=== PATIENT | female | born 1990 | race American Indian/Alaskan Native ===

== ENCOUNTER 2018-09-06 09:51 | Emergency (ER) | payer OTHER ==
[2018-09-06 09:58] VITALS: BP 132/81
[2018-09-06] MEDS ORDERED: TORADOL IM ONE (11:37)
--- NOTE | 2018-09-06 11:40 | Emergency Department Report ---
ED Back Pain/Injury HPI - General Chief Complaint: Extremity Injury, Lower Stated Complaint: LOWER BACK PAIN/ (R) LEG/FOOT PAIN Time Seen by Provider: 09/06/18 11:32 Source: patient Limitations: No Limitations - History of Present Illness MD Complaint: back pain -: week(s) (2) Quality: sharp Improves With: immobilization Worsens With: movement Associated Symptoms: denies other symptoms - Related Data Previous Rx's Medication Instructions Recorded Last Taken Type HYDROcodone/APAP 10-325 [[place] 1 each PO Q6HR PRN #20 tablet 11/09/13 Unknown Rx 10-325 mg TAB] Ibuprofen [Motrin 800 MG tab] 800 mg PO Q8H #30 tablet 11/09/13 Unknown Rx methOCARBAMOL [Robaxin TAB] 500 mg PO BID #20 tab 04/15/15 Unknown Rx traMADol [Ultram 50 MG tab] 50 mg PO TID PRN #15 tablet 04/15/15 Unknown Rx Allergies Allergy/AdvReac Type Severity Reaction Status Date / Time No Known Allergies Allergy Verified 09/06/18 09:53 ED Review of Systems ROS: Stated complaint: LOWER BACK PAIN/ (R) LEG/FOOT PAIN Other details as noted in HPI Comment: All other systems reviewed and negative Constitutional: denies: chills, fever Respiratory: denies: cough Cardiovascular: denies: chest pain, palpitations Gastrointestinal: denies: abdominal pain, nausea Genitourinary: denies: urgency, dysuria, frequency, hematuria, discharge Neurological: denies: headache, weakness, numbness, paresthesias, confusion ED Past Medical Hx - Past Medical History Previous Medical History?: No - Surgical History Past Surgical History?: No - Social History Smoking Status: Never Smoker Substance Use Type: None - Medications Home Medications: Home Medications Medication Instructions Recorded Confirmed Last Taken Type HYDROcodone/APAP 10-325 [[place] 1 each PO Q6HR PRN #20 tablet 11/09/13 Unknown Rx 10-325 mg TAB] Ibuprofen [Motrin 800 MG tab] 800 mg PO Q8H #30 tablet 11/09/13 Unknown Rx methOCARBAMOL [Robaxin TAB] 500 mg PO BID #20 tab 04/15/15 Unknown Rx traMADol [Ultram 50 MG tab] 50 mg PO TID PRN #15 tablet 04/15/15 Unknown Rx ED Physical Exam - General Limitations: No Limitations General appearance: alert, in no apparent distress - Head Head exam: Present: atraumatic, normocephalic, normal inspection - Eye Eye exam: Present: normal appearance, PERRL - ENT ENT exam: Present: normal exam, normal orophraynx, mucous membranes moist - Neck Neck exam: Present: normal inspection, full ROM. Absent: tenderness, meningismus, lymphadenopathy, thyromegaly - Respiratory Respiratory exam: Present: normal lung sounds bilaterally. Absent: respiratory distress, wheezes, rales, rhonchi, stridor, chest wall tenderness, accessory muscle use, decreased breath sounds, prolonged expiratory - Cardiovascular Cardiovascular Exam: Present: regular rate, normal rhythm, normal heart sounds - GI/Abdominal GI/Abdominal exam: Present: soft, normal bowel sounds. Absent: distended, tenderness, guarding, rebound, rigid, organomegaly, mass, bruit, pulsatile mass, hernia - Extremities Exam Extremities exam: Present: normal inspection, full ROM, normal capillary refill. Absent: pedal edema, calf tenderness - Back Exam Back exam: Present: normal inspection, full ROM, muscle spasm. Absent: tenderness, CVA tenderness (R), CVA tenderness (L), paraspinal tenderness, vertebral tenderness - Neurological Exam Neurological exam: Present: alert, oriented X3, CN II-XII intact, normal gait, reflexes normal - Skin Skin exam: Present: warm, intact, normal color ED Course Vital Signs 09/06/18 09:53 Temperature 98.7 F Pulse Rate 80 Respiratory 18 Rate Blood Pressure 132/81 [Right] O2 Sat by Pulse 100 Oximetry Critical care attestation.: If time is entered above; I have spent that time in minutes in the direct care of this critically ill patient, excluding procedure time. ED Disposition Clinical Impression: Acute low back pain Disposition: DC-01 TO HOME OR SELFCARE Is pt being admited?: No Condition: Stable Instructions: Lumbar Radiculopathy (ED), Sciatica (ED), Back Pain (ED) Referrals: PETE CORRALES MD [Primary Care Provider] - 3-5 Days
== END 2018-09-06 11:57 | disposition home or self-care (01) ==
LOC: ED 09:51
DX: M54.5 Low back pain (principal)
CPT/HCPCS: 96372; 99282; J1885

== ENCOUNTER 2020-12-23 23:15 | Emergency (ER) | payer MEDICAID, OTHER ==
[2020-12-24] MEDS ORDERED: ACETAMINOPHEN 500 MG TAB PO ONE (00:49)
[2020-12-24] MEDS ORDERED: IBUPROFEN 600 MG TAB PO ONE (00:49)
[2020-12-24 01:17] VITALS: BP 122/67
--- NOTE | 2020-12-24 01:19 | Emergency Department Report ---
ED Lower Extremity HPI - General Stated Complaint: LT KNEE/LEG PAIN Source: patient Mode of arrival: Ambulatory - History of Present Illness Initial Comments: Patient is a 30-year-old -[place] female with no past medical history presents to the ED with complaint of acute onset persistent severe left knee pain after she hyperflexed the knee and felt "pop sound" about 8 hours ago. Patient states the pain is worse with ambulation or any active range of motion of the left knee. Patient denies fall, traumatic injury, numbness and tingling or weakness of left leg, dizziness, syncope, hip pain, back pain, chest pain or shortness of breath, nausea and vomiting or heavy lifting. MD Complaint: knee injury (Left knee pain) -: Sudden, hour(s) (8) Injury: Knee: Left (Left knee pain) Type of Injury: inversion Place: home Severity: severe Severity scale (0 -10): 8 Improves With: nothing Worsens With: weight bearing, movement, palpation Context: other (Flexion of left knee) Associated Symptoms: snap/pop sensation, able to partially bear weight. denies: swelling, numbness, tingling, unable to bear weight Treatments Prior to Arrival: NSAIDS - Related Data Previous Rx's Medication Instructions Recorded Last Taken Type HYDROcodone/APAP 10-325 [[place] 1 each PO Q6HR PRN #20 tablet 11/09/13 Unknown Rx 10-325 mg TAB] Ibuprofen [Motrin 800 MG tab] 800 mg PO Q8H #30 tablet 11/09/13 Unknown Rx methOCARBAMOL [Robaxin TAB] 500 mg PO BID #20 tab 04/15/15 Unknown Rx traMADoL [Ultram 50 MG tab] 50 mg PO TID PRN #15 tablet 04/15/15 Unknown Rx Ondansetron [Zofran Odt] 4 mg PO Q8HR PRN #14 tab.rapdis 09/06/18 Unknown Rx Prednisone [predniSONE 10 mg 10 mg PO .TAPER #1 tab.ds.pk 09/06/18 Unknown Rx (6-Day Pack, 21 Tabs)] Baclofen 20 mg PO Q12H PRN #24 tablet 12/24/20 Unknown Rx Ibuprofen [Motrin] 800 mg PO Q8HR PRN #30 tablet 12/24/20 Unknown Rx traMADoL [Ultram 50 MG tab] 50 mg PO Q4HR PRN #14 tablet 12/24/20 Unknown Rx Allergies Allergy/AdvReac Type Severity Reaction Status Date / Time No Known Allergies Allergy Verified 09/06/18 09:53 ED Review of Systems ROS: Stated complaint: LT KNEE/LEG PAIN Other details as noted in HPI Constitutional: denies: chills, fever Eyes: denies: eye pain, eye discharge, vision change ENT: denies: ear pain, throat pain Respiratory: denies: cough, shortness of breath, wheezing Cardiovascular: denies: chest pain, palpitations Endocrine: no symptoms reported Gastrointestinal: denies: abdominal pain, nausea, diarrhea Genitourinary: denies: urgency, dysuria, discharge Musculoskeletal: arthralgia (Left knee pain). denies: back pain, joint swelling Skin: denies: rash, lesions Neurological: denies: headache, weakness, paresthesias Psychiatric: denies: anxiety, depression Hematological/Lymphatic: denies: easy bleeding, easy bruising ED Past Medical Hx - Social History Smoking Status: Never Smoker Substance Use Type: None - Medications Home Medications: Home Medications Medication Instructions Recorded Confirmed Last Taken Type HYDROcodone/APAP 10-325 [[place] 1 each PO Q6HR PRN #20 tablet 11/09/13 Unknown Rx 10-325 mg TAB] Ibuprofen [Motrin 800 MG tab] 800 mg PO Q8H #30 tablet 11/09/13 Unknown Rx methOCARBAMOL [Robaxin TAB] 500 mg PO BID #20 tab 04/15/15 Unknown Rx traMADoL [Ultram 50 MG tab] 50 mg PO TID PRN #15 tablet 04/15/15 Unknown Rx Ondansetron [Zofran Odt] 4 mg PO Q8HR PRN #14 tab.rapdis 09/06/18 Unknown Rx Prednisone [predniSONE 10 mg 10 mg PO .TAPER #1 tab.ds.pk 09/06/18 Unknown Rx (6-Day Pack, 21 Tabs)] Baclofen 20 mg PO Q12H PRN #24 tablet 12/24/20 Unknown Rx Ibuprofen [Motrin] 800 mg PO Q8HR PRN #30 tablet 12/24/20 Unknown Rx traMADoL [Ultram 50 MG tab] 50 mg PO Q4HR PRN #14 tablet 12/24/20 Unknown Rx ED Physical Exam - General General appearance: alert, in no apparent distress - Head Head exam: Present: atraumatic, normocephalic, normal inspection - Eye Eye exam: Present: normal appearance, PERRL, EOMI Pupils: Present: normal accommodation - ENT ENT exam: Present: normal exam, normal orophraynx, mucous membranes moist, TM's normal bilaterally, normal external ear exam - Neck Neck exam: Present: normal inspection, full ROM - Respiratory Respiratory exam: Present: normal lung sounds bilaterally. Absent: respiratory distress, wheezes, rales, stridor, chest wall tenderness, accessory muscle use, decreased breath sounds, prolonged expiratory - Cardiovascular Cardiovascular Exam: Present: regular rate, normal rhythm, normal heart sounds. Absent: systolic murmur, diastolic murmur, rubs, gallop - GI/Abdominal GI/Abdominal exam: Present: soft, normal bowel sounds. Absent: tenderness, guarding, rebound, hyperactive bowel sounds, hypoactive bowel sounds, organomegaly - Extremities Exam Extremities exam: Present: normal inspection, tenderness (Palpable severe left knee tenderness with limited range of motion due to pain), normal capillary refill. Absent: full ROM (Limited range of motion of left knee due to pain), pedal edema, joint swelling, calf tenderness - Back Exam Back exam: Present: normal inspection, full ROM. Absent: tenderness, CVA tenderness (R), CVA tenderness (L), muscle spasm, paraspinal tenderness, vertebral tenderness - Neurological Exam Neurological exam: Present: alert, oriented X3, CN II-XII intact, normal gait, reflexes normal - Psychiatric Psychiatric exam: Present: normal affect, normal mood - Skin Skin exam: Present: warm, dry, intact, normal color. Absent: rash ED Course Vital Signs 12/24/20 01:15 Temperature 98.0 F Pulse Rate 88 Respiratory 16 Rate Blood Pressure 122/67 O2 Sat by Pulse 97 Oximetry ED Lower Extremity MDM - Radiology Data Radiology results: report reviewed, image reviewed [facility] [address] [place] [address] XRay Report Signed Patient: MALLORY MARIE MR#: [id number] : 1990 Acct:[id number] Age/Sex: 30 / F ADM Date: 12/23/20 Loc: ED Attending Dr: Ordering Physician: MIKEY JAFFE Date of Service: 12/24/20 Procedure(s): XR knee 3V LT Accession Number(s): [id number] cc: MIKEY JAFFE Fluoro Time In Minutes: Left knee 3 views INDICATION: Left knee pain IMPRESSION: No fracture or subluxation. Small left knee effusion. Signer Name: Everett Colbert MD Signed: 12/24/2020 1:42 AM Workstation Name: [id number] Transcribed By: Dictated By: Everett Colbert MD Electronically Authenticated By: Everett Colbert MD Signed Date/Time: 12/24/20141 DD/ 0 TD/TT: - Medical Decision Making This is a 30-year-old -[place] female with no past medical history presents to the ED with complaint of acute onset persistent severe left knee pain after she hyperflexed the knee and felt "pop sound" about 8 hours ago. Patient states the pain is worse with ambulation or any active range of motion of the left knee. In the ED, patient is alert and oriented x3 and is not in any distress with normal vital signs. Patient was treated for pain in the ED. Left knee x-ray showed no acute fractures or subluxations. Patient's left knee was splinted with David wrap and the patient was discharged home on pain medications. Patient was advised to follow-up with her primary care physician in 5 to 7 days for reevaluation or return to the ED immediately if symptoms get worse. - Differential Diagnosis Knee sprain; knee fracture; tendinitis; ligament injury; muscle strain Critical care attestation.: If time is entered above; I have spent that time in minutes in the direct care of this critically ill patient, excluding procedure time. ED Disposition Clinical Impression: Sprain of left knee Qualifiers: Encounter type: initial encounter Involved ligament of knee: unspecified ligament Qualified Code(s): S83.92XA - Sprain of unspecified site of left knee, initial encounter Muscle strain of left knee Qualifiers: Encounter type: initial encounter Qualified Code(s): S86.912A - Strain of unspecified muscle(s) and tendon(s) at lower leg level, left leg, initial encounter Disposition: TO HOME OR SELFCARE Is pt being admited?: No Does the pt Need Aspirin: No Condition: Stable Instructions: Knee Sprain, Adult, [id number], Muscle Strain, [id number] Additional Instructions: Take medication with food, drink plenty of fluids and follow-up with your primary care physician in 7 to 10 days for reevaluation. Return to the ED immediately if symptoms get worse. Prescriptions: Baclofen 20 mg PO Q12H PRN #24 tablet PRN Reason: Muscle Spasm Ibuprofen [Motrin] 800 mg PO Q8HR PRN #30 tablet PRN Reason: Pain , Severe (7-10) traMADoL [Ultram 50 MG tab] 50 mg PO Q4HR PRN #14 tablet PRN Reason: Pain Referrals: [facility] [Provider Group] - 7-10 days Forms: Work/School Release Form(ED) Time of Disposition: 01:17 Print Language: LITHUANIAN
--- NOTE | 2020-12-24 01:46 | XRay Report ---
Left knee 3 views INDICATION: Left knee pain IMPRESSION: No fracture or subluxation. Small left knee effusion. Signer Name: Everett Colbert MD Signed: 12/24/2020 1:42 AM Workstation Name: [id number]
== END 2020-12-24 02:20 | disposition home or self-care (01) ==
LOC: ED 23:15
DX: S83.92XA Sprain of unspecified site of left knee, initial encounter (principal); Z79.1 Long term (current) use of non-steroidal anti-inflammatories (NSAID); Z79.899 Other long term (current) drug therapy; X58.XXXA Exposure to other specified factors, initial encounter; Y93.89 Activity, other specified; Y92.89 Other specified places as the place of occurrence of the external cause; Y99.8 Other external cause status
CPT/HCPCS: 99283

== ENCOUNTER 2021-08-03 08:05 | Emergency (ER) | payer MEDICAID ==
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
[2021-08-03 09:25] VITALS: BP 106/47
== END 2021-08-03 09:28 | disposition home or self-care (01) ==
LOC: ED 08:05
DX: S39.012A Strain of muscle, fascia and tendon of lower back, initial encounter (principal); S16.1XXA Strain of muscle, fascia and tendon at neck level, initial encounter; M62.830 Muscle spasm of back; M62.838 Other muscle spasm; M79.651 Pain in right thigh; Z79.899 Other long term (current) drug therapy; V87.7XXA Person injured in collision between other specified motor vehicles (traffic), initial encounter; Y93.89 Activity, other specified; Y92.488 Other paved roadways as the place of occurrence of the external cause; Y99.8 Other external cause status
CPT/HCPCS: 99282

== ENCOUNTER 2021-10-08 14:21 | Emergency (ER) | payer MEDICAID, OTHER ==
[2021-10-08] MEDS ORDERED: ASPIRIN 325 MG TAB PO ONE (22:45)
[2021-10-08 23:17] LABS: Basophils # (Auto) 0.1 K/mm3 (0.0-0.1); Basophils % (Auto) 1.1 % (0.0-1.8); Eosinophils # (Auto) 0.2 K/mm3 (0.0-0.4); Eosinophils % (Auto) 2.5 % (0.0-4.3); Hematocrit 38.1 % (30.3-42.9); Hemoglobin 12.4 gm/dl (10.1-14.3); Lymphocytes # (Auto) 2.9 K/mm3 (1.2-5.4); Lymphocytes % (Auto) 43.7 % (13.4-35.0); Mean Corpuscular HGB Conc 33 % (30-34); Mean Corpuscular Volume 85 fl (79-97); Monocytes # (Auto) 0.5 K/mm3 (0.0-0.8); Monocytes % (Auto) 7.6 % (0.0-7.3); Platelet Count 278 K/mm3 (140-440); Red Blood Count 4.47 M/mm3 (3.65-5.03); Red Cell Distribution Width 15.3 % (13.2-15.2)
[2021-10-08 23:35] LABS: Alanine Aminotransferase 13 units/L (7-56); Albumin 4.2 g/dL (3.9-5); Blood Urea Nitrogen 17 mg/dL (7-17); Calcium 8.9 mg/dL (8.4-10.2); Hemolysis Index 7
[2021-10-08 23:44] LABS: BUN/Creatinine Ratio 28
--- NOTE | 2021-10-09 00:07 | XRay Report ---
CHEST 1 VIEW INDICATION / CLINICAL INFORMATION: chest pain. FINDINGS: SUPPORT DEVICES: None. HEART / MEDIASTINUM: No significant abnormality. LUNGS / PLEURA: No significant pulmonary or pleural abnormality. No pneumothorax. ADDITIONAL FINDINGS: No significant additional findings. IMPRESSION: 1. No acute findings. Signer Name: Everett Colbert MD Signed: 10/09/2021 12:02 AM Workstation Name: [id number]
--- NOTE | 2021-10-09 00:39 | Emergency Department Report ---
ED Chest Pain HPI - General Chief Complaint: Chest Pain Stated Complaint: CHEST PAIN x1 DAY Source: patient Mode of arrival: Ambulatory Limitations: No Limitations - History of Present Illness Initial Comments: Patient is a 31-year-old -[place] female with no past medical history presents to the ED with right-sided chest pain intermittently for the last 3 days. Patient states that the pain is persistent but intermittent and does not worsen with movement, palpation or cough. Patient denies neck pain, nausea and vomiting, shortness of breath, cough, traumatic injury, heavy lifting, headache, neck pain, back pain, abdominal pain, fever and chills or fall. MD Complaint: chest pain (Right-sided chest pain intermittently) -: Sudden, days(s) (3) Onset: during exertion Pain Location: right chest Pain Radiation: none Severity: moderate Severity scale (0 -10): 5 Quality: aching Consistency: intermittent Improves With: nothing Worsens With: nothing re: denies: nausea, vomting, diaphoresis, dyspnea, sense of impending doom Other Symptoms: denies: cough, fever, syncope, rash, acid taste in mouth, palpitations, burping Treatments Prior to Arrival: none - Related Data On Oral Contraceptives: No Previous Rx's Medication Instructions Recorded Last Taken Type Ketorolac [Toradol] 10 mg PO Q6H PRN #20 tab 08/03/21 Unknown Rx tiZANidine [Zanaflex 4mg TAB] 4 mg PO Q8HR #20 08/03/21 Unknown Rx Naproxen 500 mg PO Q12H PRN #24 tab 10/09/21 Unknown Rx Allergies Allergy/AdvReac Type Severity Reaction Status Date / Time No Known Allergies Allergy Verified 09/06/18 09:53 Heart Score - HEART Score History: Slightly suspicious EKG: Normal Age: < 45 Risk factors: No known risk factors Troponin: < normal limit HEART Score: 0 - EKG Read Time Time EKG Completed: 22:59 EKG Read Time: 23:00 - Critical Actions Critical Actions: 0-3 pts:0.9-1.7%risk of adverse cardiac event.Candidate for discharge ED Review of Systems ROS: Stated complaint: CHEST PAIN x1 DAY Other details as noted in HPI Constitutional: denies: chills, fever Eyes: denies: eye pain, eye discharge, vision change ENT: denies: ear pain, throat pain Respiratory: denies: cough, shortness of breath, wheezing Cardiovascular: chest pain (Right-sided chest pain). denies: palpitations Endocrine: no symptoms reported Gastrointestinal: denies: abdominal pain, nausea, diarrhea Genitourinary: denies: urgency, dysuria, discharge Musculoskeletal: denies: back pain, joint swelling, arthralgia Skin: denies: rash, lesions Neurological: denies: headache, weakness, paresthesias Psychiatric: denies: anxiety, depression Hematological/Lymphatic: denies: easy bleeding, easy bruising ED Past Medical Hx - Social History Smoking Status: Never Smoker Substance Use Type: None - Medications Home Medications: Home Medications Medication Instructions Recorded Confirmed Last Taken Type Ketorolac [Toradol] 10 mg PO Q6H PRN #20 tab 08/03/21 Unknown Rx tiZANidine [Zanaflex 4mg TAB] 4 mg PO Q8HR #20 08/03/21 Unknown Rx Naproxen 500 mg PO Q12H PRN #24 tab 10/09/21 Unknown Rx ED Physical Exam - General Limitations: No Limitations General appearance: alert, in no apparent distress - Head Head exam: Present: atraumatic, normocephalic, normal inspection - Eye Eye exam: Present: normal appearance, PERRL, EOMI Pupils: Present: normal accommodation - ENT ENT exam: Present: normal exam, normal orophraynx, mucous membranes moist, TM's normal bilaterally, normal external ear exam - Neck Neck exam: Present: normal inspection, full ROM - Respiratory Respiratory exam: Present: normal lung sounds bilaterally. Absent: respiratory distress, wheezes, rales, stridor, chest wall tenderness, accessory muscle use, decreased breath sounds - Cardiovascular Cardiovascular Exam: Present: regular rate, normal rhythm, normal heart sounds. Absent: systolic murmur, diastolic murmur, rubs, gallop - GI/Abdominal GI/Abdominal exam: Present: soft, normal bowel sounds. Absent: tenderness, guarding, rebound, rigid, hyperactive bowel sounds, hypoactive bowel sounds, org anomegaly - Extremities Exam Extremities exam: Present: normal inspection, full ROM, normal capillary refill - Back Exam Back exam: Present: normal inspection, full ROM. Absent: tenderness, CVA tenderness (R), CVA tenderness (L), muscle spasm, paraspinal tenderness, vertebral tenderness - Neurological Exam Neurological exam: Present: alert, oriented X3, CN II-XII intact, normal gait, reflexes normal - Psychiatric Psychiatric exam: Present: normal affect, normal mood - Skin Skin exam: Present: warm, dry, intact, normal color. Absent: rash ED Course Vital Signs 10/08/21 15:10 Temperature 98.2 F Pulse Rate 85 Respiratory 18 Rate Blood Pressure 112/63 [Right] O2 Sat by Pulse 96 Oximetry VALENTIN score - Valentin Score Age > 65: (0) No Aspirin use within the Past 7 Days: (0) No 3 or more CAD Risk Factors: (0) No 2 or more Angina events in past 24 hrs: (0) No Known CAD with more than 50% Stenosis: (0) No Elevated Cardiac Markers: (0) No ST Deviation Greater than 0.5mm: (0) No VALENTIN Score: 0 ED Medical Decision Making - Lab Data Result diagrams: 10/08/21 23:01 10/08/21 23:01 - EKG Data EKG shows normal: sinus rhythm Rate: normal - EKG Data Interpretation: normal EKG 10/09/21 00:45 EKG shows normal sinus rhythm with a ventricular rate of [address] or T wave abnormalities. - Radiology Data Radiology results: report reviewed, [place] [address] XRay Report Signed Patient: MALLORY MARIE MR#: [id number] : 1990 Acct:[id number] Age/Sex: 31 / F ADM Date: 10/08/21 Loc: ED Attending Dr: Ordering Physician: MIKEY JAFFE Date of Service: 10/08/21 Procedure(s): XR chest 1V ap Accession Number(s): [id number] cc: MIKEY JAFFE Fluoro Time In Minutes: CHEST 1 VIEW INDICATION / CLINICAL INFORMATION: chest pain. FINDINGS: SUPPORT DEVICES: None. HEART / MEDIASTINUM: No significant abnormality. LUNGS / PLEURA: No significant pulmonary or pleural abnormality. No pneumothorax. ADDITIONAL FINDINGS: No significant additional findings. IMPRESSION: 1. No acute findings. Signer Name: Everett Colbert MD Signed: 10/09/2021 12:02 AM Workstation Name: [id number] Transcribed By: Dictated By: Everett Colbert MD Electronically Authenticated By: Everett Colbert MD Signed Date/Time: 10/09/211 DD/ TD/TT: - Medical Decision Making This is a 31-year-old -[place] female with no past medical history presents to the ED with right-sided chest pain intermittently for the last 3 days. Patient states that the pain is persistent but intermittent and does not worsen with movement, palpation or cough. In the ED, patient is alert and oriented x3 and is not in any distress. Patient was treated in the ED with aspirin 325 mg p.o. x1. EKG shows normal sinus rhythm with ventricular rate of 70 bpm, no ST or T wave abnormalities. Chest x-ray showed no acute cardiopulmonary abnormalities or pneumonitis. Lab test results were reviewed and are all nonactionable. Patient's heart score is 0, and patient is PERC negative per Wells criteria. Patient was therefore discharged home on medications for pain, and patient symptoms are likely due to musculoskeletal muscle strain. Patient was advised to follow-up with her primary care physician in 5 to 7 days for reevaluation or return to the ED immediately if symptoms get worse. - Differential Diagnosis ACS; costochondritis; muscle strain; PE; dissection; pneumonia; Critical care attestation.: If time is entered above; I have spent that time in minutes in the direct care of this critically ill patient, excluding procedure time. ED Disposition Clinical Impression: Acute nonspecific chest pain with low risk of coronary artery disease, Acute costochondritis Muscle strain of chest wall Qualifiers: Encounter type: initial encounter Qualified Code(s): S29.011A - Strain of muscle and tendon of front wall of thorax, initial encounter Disposition: 01 HOME / SELF CARE / HOMELESS Is pt being admited?: No Does the pt Need Aspirin: No Condition: Stable Instructions: Costochondritis, [id number], Chest Wall Pain, [id number], Nonspecific Chest Pain, Adult, [id number], Chest Pain (ED) Additional Instructions: All lab test results were reviewed and are all nonactionable. EKG shows normal sinus rhythm, no acute pathological waves identified on EKG. Chest x-ray showed no acute cardiopulmonary abnormalities or pneumonitis. Your risk factors for heart disease is 0 based on your age and past medical history. Therefore your symptoms are likely musculoskeletal muscle strain of your chest wall. Therefore take pain medication as needed with food, drink plenty of fluids, follow-up with your primary care physician in 5 to 7 days for reevaluation or return to the ED immediately if symptoms get worse. Prescriptions: Naproxen 500 mg PO Q12H PRN #24 tab PRN Reason: Pain , Severe (7-10) Referrals: MALLORY GODOY MD [Other] - 3-5 Days Forms: Work/School Release Form(ED) Time of Disposition: 00:40 Print Language: GREENLANDIC
[2021-10-09 01:01] VITALS: BP 118/67
--- NOTE | 2021-10-11 19:48 | Electrocardiograph Report ---
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
--- NOTE | 2021-10-11 19:53 | Electrocardiograph Report ---
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
== END 2021-10-09 01:02 | disposition home or self-care (01) ==
LOC: ED 14:21
DX: S29.011A Strain of muscle and tendon of front wall of thorax, initial encounter (principal); I24.9 Acute ischemic heart disease, unspecified; M94.0 Chondrocostal junction syndrome [Tietze]; X58.XXXA Exposure to other specified factors, initial encounter; Y93.89 Activity, other specified; Y92.89 Other specified places as the place of occurrence of the external cause; Y99.8 Other external cause status
CPT/HCPCS: 36415; 71045; 80053; 84484; 84703; 85025; 93005; 99284